=== PATIENT | female | born 1955 | race African-American/Black ===

== ENCOUNTER 2016-10-02 14:39 | Inpatient (IN) | payer SELFPAY ==
[~2016-10-02] VITALS: Ht 157.5 cm; Wt 60.6 kg
[2016-10-02] VITALS (10 sets, daily range): BP systolic 140–258; BP diastolic 84–131; PULSE 77–99; RESP 17–21; TEMP 97.8–98.4; O2SAT 98–100
[~2016-10-02 14:39] MED LIST: CLON.2 PO; PRIN5TAB PO; PROT40TA PO; TOPR100T15 PO; ZOFR4TAB3 SL
[2016-10-02] MEDS ORDERED: SODIUM CHLORIDE 0.9% FLUSH 5 ML FLUSH IVF PRN (15:00)
[2016-10-02] MEDS ORDERED: METF1000 PO (15:08)
[2016-10-02] MEDS ORDERED: LISI-519 PO (15:08)
[2016-10-02] MEDS ORDERED: CLON0.2T PO (15:08)
--- NOTE | 2016-10-02 15:20 | PD ---
HPI Chief Complaint: Hypertension Time Seen by Provider: 15:07 Travel History International Travel<30 days: No Contact w/Intl Traveler<30days: No Traveled to known affect area: No History of Present Illness HPI 61-year-old female came to the emergency room with history of blurred vision since this morning when she woke up. She says she has been experiencing dizziness for past 3-4 days. Says that her blood pressure is running high. However she checked it this morning only and at that time it was more than 200. She decided to come to the emergency room. She is complaining of some chest discomfort as well and some headache. Her blood pressure in triage was more than 220. Patient says she's been taking her blood pressure medication like she supposed to. She took it this morning as well. Chest pain she points to her entire chest and says it's a dull ache. [facility] Past Medical History Narrative Medical List of her past medical, surgical, social and family history was reviewed from the nursing note. Arthritis: Yes (LEGS) Asthma: No Autoimmune Disease: No Blood Disorders: No Anxiety: Yes Depression: Yes (DUE TO INFAMILY ) Heart Rhythm Problems: No Cancer: No Cardiovascular Problems: Yes High Cholesterol: Yes Chemotherapy: No Chest Pain: No Congestive Heart Failure: No COPD: No Cerebrovascular Accident: No Diabetes: No Diminished Hearing: No Endocrine: No GERD: Yes Glaucoma: No Genitourinary: No Headaches: Yes (TODAY DUE TO HIGH BLOOD PRESSURE ) Hepatitis: No Hiatal Hernia: No Hypertension: Yes Immune Disorder: No Kidney Stones: No Musculoskeletal: No Neurologic: No Psychiatric: Yes Reproductive: No Respiratory: No Immunizations Current: Yes Migraines: No Myocardial Infarction: No Radiation Therapy: No Renal Failure: No Seizures: No Sickle Cell Disease: No Sleep Apnea: No Thyroid Disease: No Ulcer: No Tetanus Vaccination: < 5 Years Influenza Vaccination: No Menopausal: Yes : 2 Para: 2 Past Surgical History AICD: No Appendectomy: No Arteriovenous Shunt: No Section: Yes Cholecystectomy: No Gynecologic Surgery: Yes (C SECTION) Insulin Pump: No Joint Replacement: No Pacemaker: No Other Surgery: Yes (C SECTION ) Social History Alcohol Use: No Tobacco Use: No (LIGHT SMOKER) Substance Use: No Allergies-Medications (Allergen,Severity, Reaction): Coded Allergies: Lortab (Verified Adverse Reaction, Severe, NAUSEA, 10/02/16) Comments List of her allergies reviewed from the nursing note. Reported Meds & Prescriptions Reported Meds & Active Scripts Active Reported Clonidine (Clonidine HCl) 0.2 Mg Tab 0.2 Mg PO BID Metformin (Metformin HCl) 1,000 Mg Tab 1,000 Mg PO BIDPC With meals Narrative Medication List of her home medications reviewed from the nursing note. Review of Systems Except as stated in HPI: all other systems reviewed are Neg Physical Exam Narrative GENERAL: Awake, alert, moderate distress SKIN: Warm and dry. HEAD: Atraumatic. Normocephalic. EYES: Pupils equal and round. No scleral icterus. No injection or drainage. ENT: No nasal bleeding or discharge. Mucous membranes pink and moist. NECK: Trachea midline. No JVD. CARDIOVASCULAR: Regular rate and rhythm. No murmur appreciated. RESPIRATORY: No accessory muscle use. Clear to auscultation. Breath sounds equal bilaterally. GASTROINTESTINAL: Abdomen soft, non-tender, nondistended. Hepatic and splenic margins not palpable. MUSCULOSKELETAL: No obvious deformities. No clubbing. No cyanosis. No edema. NEUROLOGICAL: Awake and alert. No obvious cranial nerve deficits. Motor grossly within normal limits. Normal speech. PSYCHIATRIC: Appropriate mood and affect; insight and judgment normal. Data Data Last Documented VS Vital Signs Date Time Temp Pulse Resp B/P Pulse Ox O2 Delivery O2 Flow Rate FiO2 10/02/16 17:12 99 17 220/100 99 Room Air 10/02/16 14:46 97.8 Orders Electrocardiogram (10/02/16 ) Ct Brain W/O Iv Contrast(Rout) (10/02/16 ) Ckmb (Isoenzyme) Profile (10/02/16 14:57) Complete Blood Count With Diff (10/02/16 14:57) Comprehensive Metabolic Panel (10/02/16 14:57) Magnesium (Mg) (10/02/16 14:57) Prothrombin Time / Inr (Pt) (10/02/16 14:57) Act Partial Throm Time (Ptt) (10/02/16 14:57) Troponin I (10/02/16 14:57) Sodium Chloride 0.9% Flush (Ns Flush) (10/02/16 15:00) Chest, Pa & Lat (10/02/16 14:57) Nicardipine Inj (Cardene Inj) (10/02/16 15:30) Admit Order (Ed Use Only) (10/02/16 17:09) Labs Laboratory Tests Test 10/02/16 15:35 White Blood Count 7.4 TH/MM3 Red Blood Count 5.20 MIL/MM3 Hemoglobin 14.0 GM/DL Hematocrit 41.5 % Mean Corpuscular Volume 79.7 FL Mean Corpuscular Hemoglobin 26.9 PG Mean Corpuscular Hemoglobin 33.8 % Concent Red Cell Distribution Width 14.1 % Platelet Count 239 TH/MM3 Mean Platelet Volume 7.5 FL Neutrophils (%) (Auto) 62.2 % Lymphocytes (%) (Auto) 26.8 % Monocytes (%) (Auto) 7.9 % Eosinophils (%) (Auto) 2.5 % Basophils (%) (Auto) 0.6 % Neutrophils # (Auto) 4.6 TH/MM3 Lymphocytes # (Auto) 2.0 TH/MM3 Monocytes # (Auto) 0.6 TH/MM3 Eosinophils # (Auto) 0.2 TH/MM3 Basophils # (Auto) 0.0 TH/MM3 CBC Comment DIFF FINAL Differential Comment Prothrombin Time 10.3 SEC Prothromb Time International 0.9 RATIO Ratio Activated Partial 23.0 SEC Thromboplast Time Sodium Level 141 MEQ/L Potassium Level 3.6 MEQ/L Chloride Level 102 MEQ/L Carbon Dioxide Level 28.5 MEQ/L Anion Gap 11 MEQ/L Blood Urea Nitrogen 15 MG/DL Creatinine 0.72 MG/DL Estimat Glomerular Filtration 100 ML/MIN Rate Random Glucose 110 MG/DL Calcium Level 9.5 MG/DL Magnesium Level 1.7 MG/DL Total Bilirubin 0.2 MG/DL Aspartate Amino Transf 12 U/L (AST/SGOT) Alanine Aminotransferase 21 U/L (ALT/SGPT) Alkaline Phosphatase 65 U/L Total Creatine Kinase 39 U/L Troponin I LESS THAN 0.02 NG/ML Total Protein 8.1 GM/DL Albumin 3.5 GM/DL [facility] Medical Decision Making Medical Screen Exam Complete: Yes Emergency Medical Condition: Yes Medical Record Reviewed: Yes Interpretation(s) Twelve-lead EKG was reviewed by me. Normal sinus rhythm, normal axis, LVH, nonspecific ST-T wave changes. Heart rate of 74 bpm. Differential Diagnosis Malignant hypertension, hypertensive encephalopathy, ACS Narrative Course 5:13 PM blood test results of back and within relatively normal limits. I looked at the head CT myself and it appears to be normal. Awaiting for the radiologist's read. Chest x-ray is within normal limits. I started the patient on Cardene drip. I spoke with the hospitalist who has admitted the patient. Patient needs to go to the ICU due to the drip. Critical Care Narrative Aggregate critical care time was 30 minutes. Time to perform other separately billable procedures was not included in the critical care time. My time did not include minutes spent treating any other patients simultaneously or on activities that did not directly contribute to the patient's treatment. The services I provided to this patient were to treat and/or prevent clinically significant deterioration that could result in: Malignant hypertension, Cardene drip I provided critical care services requiring my management, as noted below: Chart data review, documentation time, medication orders and management, vital sign assessments/reviewing monitor data, ordering and reviewing lab tests, ordering and interpreting/reviewing x-rays and diagnostic studies, care of the patient and discussion of the patient with the admitting physicians. Procedures EKG Prior to Arrival: Yes Physician Communication Physician Communication Dr. Oconnor Diagnosis Primary Impression: Malignant hypertension Additional Impressions: Dizziness Chest pain Qualified Code: R07.9 - Chest pain, unspecified type Admitting Information Admitting Physician Requests: Admit Scripts Aspirin 325 Mg [id number] Mg PO DAILY #30 TAB Ref 0 Prov:Jeferson Killian MD 10/04/16 Lisinopril 10 Mg Tab40 Mg PO DAILY #30 TAB Prov:Jeferson Killian MD 10/04/16 Amlodipine (Norvasc)10 Mg Tab10 Mg PO DAILY #30 TAB Prov:Jeferson Killian MD 10/04/16 Jc Vaz MD Oct 02, 2016 15:20
[2016-10-02] MEDS ORDERED: niCARdipine INJ 25 MG in SODIUM CHLOR 0.9% 250 ML INJ 250 ML IV SCH (15:30)
--- NOTE | 2016-10-02 15:48 | RADRPT ---
EXAM DATE/TIME: 10/02/2016 15:33 [facility] COMPARISON: No previous studies available for comparison. INDICATIONS : Chest pain MEDICAL HISTORY : Hypertension. Hypoglycemia SURGICAL HISTORY : None. ENCOUNTER: Initial ACUITY: 4 - 6 days PAIN SCORE: 0/10 LOCATION: chest FINDINGS: PA and lateral views of the chest demonstrate the lungs to be symmetrically aerated without evidence of mass, infiltrate or effusion. The cardiomediastinal contours are unremarkable. Osseous structure s are intact. CONCLUSION: No acute disease. Ike Pinto MD FACR on October 02, 2016 at 15:45 Board Certified Radiologist. This report was verified electronically.
[2016-10-02 16:10] LABS: AUTOMATED NEUTROPHIL # 4.6 TH/MM3 (1.8-7.7); BASOPHIL % 0.6 % (0.0-2.0); EOSINOPHIL # 0.2 TH/MM3 (0-0.4); EOSINOPHIL % 2.5 % (0.0-4.0); HEMATOCRIT 41.5 % (35.0-46.0); HEMO FLAGS DIFF FINAL; LYMPH % 26.8 % (9.0-44.0); MEAN CELL VOLUME 79.7 FL (80.0-100.0); MEAN CORPUSCULAR HEMOGLOBIN 26.9 PG (27.0-34.0); MEAN CORPUSCULAR HGB CONC 33.8 % (32.0-36.0); MONO % 7.9 % (0.0-8.0); NEUT % 62.2 % (16.0-70.0); PLATELET COUNT 239 TH/MM3 (150-450); RED CELL DISTRIBUTION WIDTH 14.1 % (11.6-17.2); WHITE BLOOD COUNT 7.4 TH/MM3 (4.0-11.0)
[2016-10-02 16:21] LABS: INTERNATIONAL NORMALIZED RATIO 0.9 RATIO; PROTHROMBIN TIME - PATIENT 10.3 SEC (9.8-11.6)
[2016-10-02 16:25] LABS: ALT (GPT) 21 U/L (10-53); ANION GAP 11 MEQ/L (5-15); AST (GOT) 12 U/L (15-37); BICARBONATE 28.5 MEQ/L (21.0-32.0); BLOOD UREA NITROGEN 15 MG/DL (7-18); CHLORIDE 102 MEQ/L (98-107); GLOMERULAR FILTRATION RATE 100 ML/MIN (>89); MAGNESIUM 1.7 MG/DL (1.5-2.5); POTASSIUM 3.6 MEQ/L (3.5-5.1); SODIUM (NA) 141 MEQ/L (136-145)
[2016-10-02 16:29] LABS: ALKALINE PHOSPHATASE 65 U/L (45-117); TOTAL BILIRUBIN ADULT 0.2 MG/DL (0.2-1.0)
[2016-10-02 16:45] LABS: CREATINE KINASE 39 U/L (26-192)
--- NOTE | 2016-10-02 17:15 | RADRPT ---
EXAM DATE/TIME: 10/02/2016 16:39 [facility] COMPARISON: No previous studies available for comparison. INDICATIONS : Dizziness, hypertension, headache and blurred vision. RADIATION DOSE: 42.92 CTDIvol (mGy) MEDICAL HISTORY : Hypertension. SURGICAL HISTORY : section. ENCOUNTER: Initial ACUITY: 4 - 6 days PAIN SCALE: 5/10 LOCATION: cranial TECHNIQUE: Multiple contiguous axial images were obtained of the head. Using automated exposure control and adj ustment of the mA and/or kV according to patient size, radiation dose was kept as low as reasonably a chievable to obtain optimal diagnostic quality images. FINDINGS: CEREBRUM: The ventricles are normal for age. Periventricular white matter hypodensity is identified in both fro ntal lobes. No evidence of midline shift, mass lesion, hemorrhage or acute infarction. No extra-axia l fluid collections are seen. POSTERIOR FOSSA: The cerebellum and brainstem are intact. The 4th ventricle is midline. The cerebellopontine angle i s unremarkable. EXTRACRANIAL: The visualized portion of the orbits is intact. SKULL: The calvaria is intact. No evidence of skull fracture. CONCLUSION: Periventricular white matter hypodensity in the frontal lobes characteristic of either post brain inj ury changes or chronic microvascular ischemic disease. No evidence of acute infarct, hemorrhage, mass or edema. Dimitris Schultz MD on October 02, 2016 at 17:11 Board Certified Radiologist. This report was verified electronically.
[2016-10-02] MEDS ORDERED: SODIUM CHLORIDE 0.9% FLUSH 5 ML FLUSH FLUSH PRN (17:45)
[2016-10-02] MEDS ORDERED: ENALAPRILAT 1.25 MG/ML VIAL IV PRN (17:45)
[2016-10-02] MEDS ORDERED: GLUCAGON 1 MG/ML VIAL OTHER PRN (17:45)
[2016-10-02] MEDS ORDERED: DEXTROSE 50% IN WATER 50 ML VIAL(D50) IV PUSH PRN (17:45)
[2016-10-02] MEDS: LISINOPRIL 5 MG TAB PO SCH (17:57)
[2016-10-02] MEDS: hydrALAZINE HCL 20 MG/ML VIAL IV PRN (18:38)
--- NOTE | 2016-10-02 19:08 | HHI.HP ---
HPI [facility] Primary Care Physician Deonte Grubbs M.D. Admission Diagnosis malignant hypertension, dizziness, chest pain Diagnoses: Travel History International Travel<30 Days: No Contact w/Intl Traveler <30 Da: No Traveled to Known Affected Are: No Past Family Social History Allergies: Coded Allergies: Lortab (Verified Adverse Reaction, Severe, NAUSEA, 10/02/16) Physical Exam Vital Signs Vital Signs Date Time Temp Pulse Resp B/P Pulse Ox O2 Delivery O2 Flow Rate FiO2 10/02/16 18:15 89 17 198/102 99 Nasal Cannula 10/02/16 18:00 99 21 10/02/16 17:55 98 17 196/102 100 Room Air 10/02/16 17:40 96 17 192/100 99 Room Air 10/02/16 17:25 84 17 198/100 98 Room Air 10/02/16 17:12 99 17 220/100 99 Room Air 10/02/16 15:10 68 17 99 10/02/16 14:46 97.8 82 18 258/131 98 Physical Exam GENERAL: This is a well-nourished, well-developed patient, in no apparent distress. SKIN: No rashes, ecchymoses or lesions. Cool and dry. HEAD: Atraumatic. Normocephalic. No temporal or scalp tenderness. EYES: Pupils equal round and reactive. Extraocular motions intact. No scleral icterus. No injection or drainage. ENT: Nose without bleeding, purulent drainage or septal hematoma. Throat without erythema, tonsillar hypertrophy or exudate. Uvula midline. Airway patent. NECK: Trachea midline. No JVD or lymphadenopathy. Supple, nontender, no meningeal signs. CARDIOVASCULAR: Regular rate and rhythm without murmurs, gallops, or rubs. RESPIRATORY: Clear to auscultation. Breath sounds equal bilaterally. No wheezes , rales, or rhonchi. GASTROINTESTINAL: Abdomen soft, non-tender, nondistended. No hepato-splenomegaly , or palpable masses. No guarding. MUSCULOSKELETAL: Extremities without clubbing, cyanosis, or edema. No joint tenderness, effusion, or edema noted. No calf tenderness. Negative Homans sign bilaterally. NEUROLOGICAL: Awake and alert. Cranial nerves II through XII intact. Motor and sensory grossly within normal limits. Five out of 5 muscle strength in all muscle groups. Normal speech. Laboratory Laboratory Tests Test 10/02/16 15:35 White Blood Count 7.4 Red Blood Count 5.20 Hemoglobin 14.0 Hematocrit 41.5 Mean Corpuscular Volume 79.7 Mean Corpuscular Hemoglobin 26.9 Mean Corpuscular Hemoglobin 33.8 Concent Red Cell Distribution Width 14.1 Platelet Count 239 Mean Platelet Volume 7.5 Neutrophils (%) (Auto) 62.2 Lymphocytes (%) (Auto) 26.8 Monocytes (%) (Auto) 7.9 Eosinophils (%) (Auto) 2.5 Basophils (%) (Auto) 0.6 Neutrophils # (Auto) 4.6 Lymphocytes # (Auto) 2.0 Monocytes # (Auto) 0.6 Eosinophils # (Auto) 0.2 Basophils # (Auto) 0.0 CBC Comment DIFF FINAL Differential Comment Prothrombin Time 10.3 Prothromb Time International 0.9 Ratio Activated Partial 23.0 Thromboplast Time Sodium Level 141 Potassium Level 3.6 Chloride Level 102 Carbon Dioxide Level 28.5 Anion Gap 11 Blood Urea Nitrogen 15 Creatinine 0.72 Estimat Glomerular Filtration 100 Rate Random Glucose 110 Calcium Level 9.5 Magnesium Level 1.7 Total Bilirubin 0.2 Aspartate Amino Transf 12 (AST/SGOT) Alanine Aminotransferase 21 (ALT/SGPT) Alkaline Phosphatase 65 Total Creatine Kinase 39 Troponin I LESS THAN 0.02 Total Protein 8.1 Albumin 3.5 Result Diagram: 10/02/16 1535 10/02/16 1535 Assessment and Plan Assessment and Plan [id number] Physician Certification 2 Midnight Certification Type: Admission for Inpatient Services Order for Inpatient Services The services are ordered in accordance with Medicare regulations or non- Medicare payer requirements, as applicable. In the case of services not specified as inpatient-only, they are appropriately provided as inpatient services in accordance with the 2-midnight benchmark. Estimated LOS (days): 4 days is the estimated time the patient will need to remain in the hospital, assuming treatment plan goals are met and no additional complications. Post-Hospital Plan: Gail Boyer Oct 02, 2016 19:08
[2016-10-02] MEDS ORDERED: ONDANSETRON HCL 4 MG/2 ML VIAL IV PUSH PRN (19:30)
[2016-10-02] MEDS ORDERED: CHLORHEXIDINE GLUCONATE 2 % 1 PACK (2 CLOTHS)(extra cloths) TOP PRN (19:30)
--- NOTE | 2016-10-02 19:38 | HHI.PR ---
Objective Objective Results - Vital Signs Date Time Temp Pulse Resp B/P Pulse Ox O2 Delivery O2 Flow Rate FiO2 10/02/16 19:33 98 21 10/02/16 18:15 89 17 198/102 99 Nasal Cannula 10/02/16 18:00 99 21 10/02/16 17:55 98 17 196/102 100 Room Air 10/02/16 17:40 96 17 192/100 99 Room Air 10/02/16 17:25 84 17 198/100 98 Room Air 10/02/16 17:12 99 17 220/100 99 Room Air 10/02/16 15:10 68 17 99 10/02/16 14:46 97.8 82 18 258/131 98 I/O 10/01/16 10/01/16 10/01/16 10/02/16 10/02/16 10/02/16 07:00 15:00 23:00 07:00 15:00 23:00 Intake Total 180 ml Output Total 600 ml Balance -420 ml Intake Oral 180 ml Output Urine Total 600 ml # Voids 1 # Bowel Movements 0 Result Diagram: 10/02/16 1535 10/02/16 1535 Other Results Laboratory Tests Test 10/02/16 15:35 White Blood Count 7.4 Red Blood Count 5.20 Hemoglobin 14.0 Hematocrit 41.5 Mean Corpuscular Volume 79.7 Mean Corpuscular Hemoglobin 26.9 Mean Corpuscular Hemoglobin 33.8 Concent Red Cell Distribution Width 14.1 Platelet Count 239 Mean Platelet Volume 7.5 Neutrophils (%) (Auto) 62.2 Lymphocytes (%) (Auto) 26.8 Monocytes (%) (Auto) 7.9 Eosinophils (%) (Auto) 2.5 Basophils (%) (Auto) 0.6 Neutrophils # (Auto) 4.6 Lymphocytes # (Auto) 2.0 Monocytes # (Auto) 0.6 Eosinophils # (Auto) 0.2 Basophils # (Auto) 0.0 CBC Comment DIFF FINAL Differential Comment Prothrombin Time 10.3 Prothromb Time International 0.9 Ratio Activated Partial 23.0 Thromboplast Time Sodium Level 141 Potassium Level 3.6 Chloride Level 102 Carbon Dioxide Level 28.5 Anion Gap 11 Blood Urea Nitrogen 15 Creatinine 0.72 Estimat Glomerular Filtration 100 Rate Random Glucose 110 Calcium Level 9.5 Magnesium Level 1.7 Total Bilirubin 0.2 Aspartate Amino Transf 12 (AST/SGOT) Alanine Aminotransferase 21 (ALT/SGPT) Alkaline Phosphatase 65 Total Creatine Kinase 39 Troponin I LESS THAN 0.02 Total Protein 8.1 Albumin 3.5 Physical Exam Physical Exam pt is seen & examined d/w PT d/w audrey d/w RN see H&P see Ordersw will f/u Jeferson Killian MD Oct 02, 2016 19:38
[2016-10-02] MEDS: cloNIDine HCL 0.2 MG TAB PO SCH (20:00)
[2016-10-02] MEDS: SODIUM CHLORIDE 0.9% FLUSH 5 ML FLUSH FLUSH SCH (20:01)
[2016-10-02] MEDS: INSULIN ASPART SUPPLEMENTAL SCALE SQ SCH (20:07)
[2016-10-02] MEDS: niCARdipine INJ 50 MG in SODIUM CHLORID 0.9% 500 ML INJ 480 ML IV SCH (22:25)
[2016-10-02] MEDS: CHLORHEXIDINE GLUCONATE 2 % 1 PACK (2 CLOTHS)(taper/protocol) TOP SCH (22:26)
[2016-10-03] VITALS (10 sets, daily range): BP systolic 127–178; BP diastolic 62–88; PULSE 58–75; RESP 18–21; TEMP 98.2–98.9; O2SAT 97–99
[2016-10-03] MEDS: INSULIN ASPART SUPPLEMENTAL SCALE SQ SCH ×4 (07:00→20:41)
--- NOTE | 2016-10-03 08:44 | MH ---
cc: JEFERSON KILLIAN MD DATE OF ADMISSION 10/02/2016 DATE OF 1955 CHIEF COMPLAINT Dizziness, blurred vision, high blood pressure. Travel none in the last 30 days. HISTORY OF PRESENT ILLNESS This is a pleasant 61-year-old black female who has been in her usual state of health up until the past few days. The patient also states that she has struggled with her blood pressure since the age of 16 and keeping it under control. She states she takes four medications and her last dose was this morning. She states that she has been dizzy for the past 3-4 days but when she awakened this morning she had blurred vision. She also has headache, but denies any nausea or vomiting, diarrhea or constipation. The patient also states some dull chest pain which seems to wax and wane for the past few days. The patient describes her chest pain as a dull ache, non-radiating, no numbness or tingling in her extremities. The patient has experienced some sadness in her life due to the of her son. This too is causing some of the stress in her life. The patient also states that she has some reflux with her food at times. PAST MEDICAL HISTORY Medical history: 1. Arthritis. 2. Anxiety. 3. Depression due to the of her son. 4. Vascular disease. 5. Hypertension, malignant. 6. Hyperlipidemia. 7. Gastroesophageal reflux disease. 8. Headaches. PAST SURGICAL HISTORY . ALLERGIES LORTAB. SOCIAL HISTORY She lives in her home with her two brothers. She does smoke a social amount, approximately a pack every two to three weeks. Denies any alcohol or illicit drug use. FAMILY HISTORY Hypertension. REVIEW OF SYSTEMS A 10-point review was done, positives noted in HPI which include blurred vision, dizziness, hypertension uncontrolled, chest pain, gastroesophageal reflux disease. Other systems negative or unremarkable. PHYSICAL EXAMINATION VITAL SIGNS: Temperature is 97.8, pulse labile between 84 and 99, respirations 17, blood pressure has been as high as 220/100, 198/102. O2 sat 99 on 2 liters nasal cannula p.r.n. SKIN: [place] mucous membranes warm and dry. GENERAL: Well-nourished black female looks to be her stated age resting in the bed. She is alert, oriented and cooperative. HEENT: Atraumatic, normocephalic. [place] mucous membranes. PERRLA at 3. NECK: Is supple. CARDIOVASCULAR: Heart sounds S1-S2 regular rate and rhythm with no murmurs, rubs or gallops. She has no edema. Pulses are intact. LUNGS: Essentially clear anteriorly and posteriorly with no wheezes, rales or rhonchi. ABDOMEN: Flat, soft, nontender, nondistended. Active bowel sounds in all four quads. MUSCULOSKELETAL: She moves all extremities with purpose. She has equal hand stockroom attendant and she can overcome resistance. NEUROLOGICAL: She is alert, oriented. A good historian. No neurological deficits noted. Speech is clear. PSYCHOLOGIC: Appropriate affect. Able to talk about her problems. LABORATORY DATA Diagnostic data, WBC count 7.4, RBC 5.2, hemoglobin 14, hematocrit 41.5, mean cell volume 79.7, platelet count 239. PT/INR 0.9. Chemistry, sodium 141, potassium 3.6, chloride 102, carbon dioxide 28.5, anion gap 11, BUN 15, creatinine 0.72, glucose 110. AST 12. Troponin less than 0.02. IMAGING Diagnostic data, chest x-ray no mass, infiltrates or effusions. CT of the head completed. Periventricular white matter hypodensity in the frontal lobes characteristics with either a post brain injury or chronic microvascular ischemic disease. No hemorrhage or infarct. ASSESSMENT 1. Malignant hypertension, uncontrolled. 2. Dizziness. 3. Chest pain, rule out [facility]. 4. Blurred vision. 5. Hyperlipidemia. 6. Depression and anxiety. The plan is to admit inpatient status. The patient is requiring IV Cardene as well as IV p.r.n. medicines and her p.o. medicines to get her blood pressure under control. She has still been running a diastolic greater than 100 since her admission up to the ICU area. We will need to monitor closely and monitor neuro checks if warranted. The patient will have vital signs at least every 1-4 hours depending on her course of treatment. O2 at 2 liters p.r.n. We will monitor her labs and vital signs and treat aggressively any abnormals. Once the patient is stabilized, she will need her chest pain addressed. We will monitor her troponin levels. Give her gentle hydration, 1800 calories ADA diet. Accu-Cheks a.c. and at bedtime due to her mild hyperglycemia on admission. She is full code, full aggressive care and we will follow. Dictated by: DONALD Alcazar Jeferson Killian MD MNA/KK /5:58 PM /7:43 AM pt is seen & examined d/w PT d/w audrey d/w RN see H&P see Ordersw will f/u Jeferson Killian MD Oct 02, 2016 19:38 MTDD
[2016-10-03] MEDS: SODIUM CHLORIDE 0.9% FLUSH 5 ML FLUSH FLUSH SCH ×2 (08:54→20:27)
[2016-10-03] MEDS: cloNIDine HCL 0.2 MG TAB PO SCH ×2 (08:54→20:27)
[2016-10-03] MEDS: LISINOPRIL 5 MG TAB PO SCH (08:54)
--- NOTE | 2016-10-03 15:02 | EKG ---
Date Performed: 10/02/2016 Time Performed: 14:58:40 PTAGE: 61 years EKG: Sinus rhythm VOLTAGE CRITERIA FOR LVH POSSIBLE INFERIOR MYOCARDIAL INFARCTION Compared to prior tracing no signif icant change ABNORMAL ECG PREVIOUS TRACING : 09/29/2015 03.20 DOCTOR: Pradeep Jones Interpretating Date/Time 10/03/2016 14:58:32
--- NOTE | 2016-10-03 15:05 | HHI.PR ---
Subjective History of Present Illness Complains of headache No more nausea or vomiting Chest pain is better No shortness of breath No fever or chills Blood pressure is better, still on cardene drip Offers no other complaints Granddaughter is at bedside Vitals/Results Intake & Output 10/02/16 10/02/16 10/03/16 15:00 23:00 07:00 Intake Total 1192 ml 799 ml Output Total 600 ml 400 ml Balance 592 ml 399 ml Intake Oral 480 ml 250 ml IV Total 712 ml 549 ml Output Urine Total 600 ml 400 ml # Voids 2 1 # Bowel Movements 0 Vital Signs Vital Signs Date Time Temp Pulse Resp B/P Pulse Ox O2 Delivery O2 Flow Rate FiO2 10/03/16 12:00 98.5 72 18 144/87 98 10/03/16 08:00 98.9 67 20 150/76 97 10/03/16 08:00 67 10/03/16 06:00 67 10/03/16 04:00 98.3 70 18 130/67 98 10/03/16 04:00 70 10/03/16 02:00 68 10/03/16 00:00 98.2 75 21 127/62 97 10/03/16 00:00 75 10/02/16 22:00 77 10/02/16 20:00 98.4 90 21 140/84 99 10/02/16 20:00 90 10/02/16 19:33 98 21 10/02/16 18:15 89 17 198/102 99 Nasal Cannula 10/02/16 18:00 99 21 10/02/16 17:55 98 17 196/102 100 Room Air 10/02/16 17:40 96 17 192/100 99 Room Air 10/02/16 17:25 84 17 198/100 98 Room Air 10/02/16 17:12 99 17 220/100 99 Room Air 10/02/16 15:10 68 17 99 CBC/BMP: 10/02/16 1535 10/02/16 1535 Lab Results Laboratory Tests Test 10/02/16 10/02/16 10/02/16 15:35 18:30 21:45 White Blood Count 7.4 TH/MM3 Red Blood Count 5.20 MIL/MM3 Hemoglobin 14.0 GM/DL Hematocrit 41.5 % Mean Corpuscular Volume 79.7 FL Mean Corpuscular Hemoglobin 26.9 PG Mean Corpuscular Hemoglobin 33.8 % Concent Red Cell Distribution Width 14.1 % Platelet Count 239 TH/MM3 Mean Platelet Volume 7.5 FL Neutrophils (%) (Auto) 62.2 % Lymphocytes (%) (Auto) 26.8 % Monocytes (%) (Auto) 7.9 % Eosinophils (%) (Auto) 2.5 % Basophils (%) (Auto) 0.6 % Neutrophils # (Auto) 4.6 TH/MM3 Lymphocytes # (Auto) 2.0 TH/MM3 Monocytes # (Auto) 0.6 TH/MM3 Eosinophils # (Auto) 0.2 TH/MM3 Basophils # (Auto) 0.0 TH/MM3 CBC Comment DIFF FINAL Differential Comment Prothrombin Time 10.3 SEC Prothromb Time International 0.9 RATIO Ratio Activated Partial 23.0 SEC Thromboplast Time Sodium Level 141 MEQ/L Potassium Level 3.6 MEQ/L Chloride Level 102 MEQ/L Carbon Dioxide Level 28.5 MEQ/L Anion Gap 11 MEQ/L Blood Urea Nitrogen 15 MG/DL Creatinine 0.72 MG/DL Estimat Glomerular Filtration 100 ML/MIN Rate Random Glucose 110 MG/DL Calcium Level 9.5 MG/DL Magnesium Level 1.7 MG/DL Total Bilirubin 0.2 MG/DL Aspartate Amino Transf 12 U/L (AST/SGOT) Alanine Aminotransferase 21 U/L (ALT/SGPT) Alkaline Phosphatase 65 U/L Total Creatine Kinase 39 U/L Troponin I LESS THAN 0.02 0.05 NG/ML NG/ML Total Protein 8.1 GM/DL Albumin 3.5 GM/DL Nasal Screen MRSA (PCR) NEGATIVE Physical Exam General General Appearance: No Acute Distress, Comfortable, Obese Eyes Eye Exam: Pupils Equal, Sclera White Ears & Nose Ears & Nose Exam: Nasal Mucosa [place] Throat Throat Exam: Oral Mucosa [place] & Moist Neck Neck Exam: Neck Supple, Trachea Midline Pulmonary Resp Exam: Clear Bilaterally, Breath Sounds Equal Cardiology CV Exam: Regular, Normal Sinus Rhythm Gastrointestinal/Abdomen GI Exam: Soft, Non-Tender, Bowel Sounds Present Integumentary Skin Exam: Warm, Dry Extremeties Extremities Exam: No Edema, Pedal Pulses Palpable Neurologic Neuro Exam: Alert, Awake, Oriented, Speech Clear, Moving All Extremities Psychiatric Psych Exam: Appropriate Responses Assessment/Plan Assessment/Plan ASSESSMENT 1. Malignant hypertension, uncontrolled. 2. Dizziness. 3. Chest pain, rule out [place]. 4. Blurred vision. 5. Hyperlipidemia. 6. Depression and anxiety. Plan DC Cardene drip Start beta radha Increased dose of DONALDO inhibitor continue clonidine for now Troponin negative Continue aspirin Obtain cardiac consultation Obtain 2-D echo Check lipid profile GI Protection DVT prophylaxis Transfer to telemetry Jeferson Killian MD Oct 03, 2016 15:05
[2016-10-03] MEDS ORDERED: METF500T PO ×2 (15:10)
[2016-10-03] MEDS ORDERED: ROSU20 PO (15:13)
[2016-10-03] MEDS ORDERED: CARVEDILOL 3.125 MG TAB PO ONE (15:15)
[2016-10-03] MEDS ORDERED: hydrALAZINE HCL 50 MG TAB PO PRN (16:45)
--- NOTE | 2016-10-03 17:30 | MB ---
cc: SANTOSH COOL DATE OF CONSULTATION: 10/03/2016 REASON FOR CONSULTATION: Chest pain HISTORY OF PRESENT ILLNESS This is a very nice 61-year-old female who presented to emergency department with blurry vision for 3-4 days in addition to headache. She also describes some waxing and waning chest pain over the course of the past few days. When she came into the emergency department the systolic blood pressure was severely elevated close to 100 mmHg. She was started on Cardene drip and transferred to the ICU. Blood pressure has improved. Initial troponin was negative, second troponin was intermediate. She again had another recurrence of substernal chest tightness which she describes as someone sitting on her chest. No EKG changes were noted. She is now chest pain free. PAST MEDICAL HISTORY: 1. Arthritis 2. Anxiety and depression 3. Vascular disease 4. Hypertension 5. Hyperlipidemia 6. GERD. 7. Headache ALLERGIES: LORTAB SOCIAL HISTORY: Occasional tobacco use. Denies any drug use. Denies any alcohol use. FAMILY HISTORY Family history of sudden cardiac . REVIEW OF SYSTEMS 12-point review of system was performed, negative unless otherwise noted is history of present illness. PHYSICAL EXAMINATION VITAL SIGNS: Temperature 98, heart rate 72, blood pressure 144/87 mmHg. General: Alert and oriented x3 in no acute distress. HEENT: Exam shows pupils round and reactive to light and accommodation. Extraocular movements intact. Elevation in jugular venous distention. No thyromegaly, no lymphadenopathy, no carotid bruits. Lungs: Clear to auscultation bilaterally. Cardiovascular: Regular rate and rhythm. A 2/6 systolic murmur, left sternal border. Abdomen: Non-tender, non-distended. Good bowel sounds. No hepatosplenomegaly. Extremities: No clubbing, cyanosis or edema. Good peripheral pulses. Cranial nerves intact. Motor sensory grossly intact. LABORATORY DATA WBC 7.4, hemoglobin 14, platelet count 239, sodium 141, potassium 3.6 BUN is 15, creatinine 0.72, troponins 0.05. Electrocardiogram: sinus rhythm, left ventricular hypertrophy with strained pattern. ASSESSMENT 8. Angina. 9. Hypertension 10. Diabetes. PLAN Systolic blood pressure does look better. Cardene drip is being weaned. Will change the Lisinopril to 40 milligrams a day. If continues with high blood pressure, may consider addition of Amlodipine. We will use Hydralazine p.r.n., and discontinue Cardene drip. Troponin is in the intermediate range. Symptoms are somewhat suggestive. EKG shows no significant ischemic changes. Will plan for Lexiscan tomorrow, n.p.o. after midnight. MD TERRY Minaya/FAUSTO /4:49 PM /5:13 PM
[2016-10-03] MEDS: ACETAMINOPHEN/HYDROcodone 325 MG/5 MG TAB PO PRN (17:42)
[2016-10-03] MEDS: CHLORHEXIDINE GLUCONATE 2 % 1 PACK (2 CLOTHS)(taper/protocol) TOP SCH (20:27)
[2016-10-03] MEDS ORDERED: LISINOPRIL 10 MG TAB PO SCH (21:00)
[2016-10-04] VITALS (9 sets, daily range): BP systolic 142–179; BP diastolic 79–91; PULSE 54–70; RESP 12–19; TEMP 97.9–98.6; O2SAT 96–100
[2016-10-04] MEDS: hydrALAZINE HCL 20 MG/ML VIAL IV PRN (04:34)
[2016-10-04] MEDS: INSULIN ASPART SUPPLEMENTAL SCALE SQ SCH ×3 (06:35→16:00)
--- NOTE | 2016-10-04 08:09 | PD.CARD.PN ---
Subjective Subjective Remarks continues to feel intermittent chest pain at rest overnight. Admits to headache present for the past day. Denies SOB or palpitations. Remains NPO overnight. ( Shonda Jay) Objective Medications Current Medications Medications (Trade) Dose Ordered Sig/Bennett Route Start Time Stop Time Status Last Admin (Catapres) 0.2 mg BID PO 10/02/16 21:00 10/03/16 20:27 (NS Flush) 2 ml UNSCH PRN FLUSH 10/02/16 17:45 (NS Flush) 2 ml BID FLUSH 10/02/16 21:00 10/03/16 20:27 (Vasotec Inj) 1.25 mg Q6H PRN IV 10/02/16 17:45 (Apresoline Inj) 10 mg Q6H PRN IV 10/02/16 17:45 10/04/16 04:34 (D50w (Vial) Inj) 25 ml UNSCH PRN IV PUSH 10/02/16 17:45 (Glucagon Inj) 1 mg UNSCH PRN OTHER 10/02/16 17:45 Miscellaneous Information Patient in critical care unit? Ass... Q361D XX 10/02/16 19:30 10/02/16 19:30 (Chlorhexidine 2% Cloth) 3 pack DAILY@04 TOP 10/03/16 04:00 10/07/16 04:01 10/03/16 20:27 (Chlorhexidine 2% Cloth) 3 pack UNSCH PRN TOP 10/02/16 19:30 10/07/16 19:27 (Zofran Inj) 4 mg Q8HR PRN IV PUSH 10/02/16 19:30 10/02/16 20:00 ([place] 5-325 Mg) 1 tab Q6H PRN PO 10/03/16 15:30 10/03/16 17:42 (Prinivil) 40 mg DAILY PO 10/04/16 09:00 (Apresoline) 50 mg Q8H PRN PO 10/03/16 16:45 Vital Signs / I&O Vital Signs Date Time Temp Pulse Resp B/P Pulse Ox O2 Delivery O2 Flow Rate FiO2 10/04/16 06:33 97.9 63 18 164/88 100 10/04/16 06:00 70 10/04/16 04:00 61 10/04/16 04:00 98.6 61 16 179/87 97 10/04/16 02:00 54 10/04/16 00:00 98.3 57 12 157/84 96 10/04/16 00:00 58 10/03/16 22:00 58 10/03/16 21:04 99 21 10/03/16 20:00 98.5 67 18 178/88 98 10/03/16 20:00 67 10/03/16 16:00 98.2 68 18 144/80 99 10/03/16 12:00 98.5 72 18 144/87 98 I/O 10/03/16 10/03/16 10/03/16 10/04/16 10/04/16 10/04/16 07:00 15:00 23:00 07:00 15:00 23:00 Intake Total 799 ml 927 ml 480 ml Output Total 400 ml 350 ml Balance 399 ml 927 ml 480 ml -350 ml Intake Oral 250 ml 720 ml 480 ml IV Total 549 ml 207 ml Output Urine Total 400 ml 350 ml # Voids 1 6 1 Physical Exam HEAD: Atraumatic. Normocephalic. EYES: Pupils equal and round. ENT: No nasal bleeding or discharge. NECK: Trachea midline. No JVD. CARDIOVASCULAR: Regular rate and rhythm. systolic murmur 2/6 LSB RESPIRATORY: No accessory muscle use. Clear to auscultation. Breath sounds equal bilaterally. GASTROINTESTINAL: Abdomen soft, non-tender. MUSCULOSKELETAL: Extremities without clubbing, cyanosis, or edema. No obvious deformities. NEUROLOGICAL: Awake and alert. No obvious cranial nerve deficits. Normal speech. PSYCHIATRIC: Appropriate mood and affect; insight and judgment normal. Laboratory Laboratory Tests Test 10/02/16 10/02/16 10/02/16 15:35 18:30 21:45 White Blood Count 7.4 TH/MM3 Red Blood Count 5.20 MIL/MM3 Hemoglobin 14.0 GM/DL Hematocrit 41.5 % Mean Corpuscular Volume 79.7 FL Mean Corpuscular Hemoglobin 26.9 PG Mean Corpuscular Hemoglobin 33.8 % Concent Red Cell Distribution Width 14.1 % Platelet Count 239 TH/MM3 Mean Platelet Volume 7.5 FL Neutrophils (%) (Auto) 62.2 % Lymphocytes (%) (Auto) 26.8 % Monocytes (%) (Auto) 7.9 % Eosinophils (%) (Auto) 2.5 % Basophils (%) (Auto) 0.6 % Neutrophils # (Auto) 4.6 TH/MM3 Lymphocytes # (Auto) 2.0 TH/MM3 Monocytes # (Auto) 0.6 TH/MM3 Eosinophils # (Auto) 0.2 TH/MM3 Basophils # (Auto) 0.0 TH/MM3 CBC Comment DIFF FINAL Differential Comment Prothrombin Time 10.3 SEC Prothromb Time International 0.9 RATIO Ratio Activated Partial 23.0 SEC Thromboplast Time Sodium Level 141 MEQ/L Potassium Level 3.6 MEQ/L Chloride Level 102 MEQ/L Carbon Dioxide Level 28.5 MEQ/L Anion Gap 11 MEQ/L Blood Urea Nitrogen 15 MG/DL Creatinine 0.72 MG/DL Estimat Glomerular Filtration 100 ML/MIN Rate Random Glucose 110 MG/DL Calcium Level 9.5 MG/DL Magnesium Level 1.7 MG/DL Total Bilirubin 0.2 MG/DL Aspartate Amino Transf 12 U/L (AST/SGOT) Alanine Aminotransferase 21 U/L (ALT/SGPT) Alkaline Phosphatase 65 U/L Total Creatine Kinase 39 U/L Total Protein 8.1 GM/DL Albumin 3.5 GM/DL Nasal Screen MRSA (PCR) NEGATIVE Troponin I 0.05 NG/ML Imaging Last Impressions Chest X-Ray 10/02/16 1457 Signed Impressions: Service Date/Time: Sunday, October 02, 2016 15:33 - CONCLUSION: No acute disease. Ike Pinto MD FACR Head CT 10/02/16 0000 Signed Impressions: Service Date/Time: Sunday, October 02, 2016 16:39 - CONCLUSION: Periventricular white matter hypodensity in the frontal lobes characteristic of either post brain injury changes or chronic microvascular ischemic disease. No evidence of acute infarct, hemorrhage, mass or edema. Dimitris Schultz MD (Shonda Jay) Assessment and Plan Problem List: (1) Chest pain (2) Malignant hypertension Assessment and Plan chest pain - continues to be symptomatic at rest. Nuclear stress testing planned for this morning to rule out ischemia. Echo pending. SBP remains elevated, +headache - Cardene gtt stopped. She is maintained on lisinopril 40mg, clonidine 0.2mg BID and hydralazine PRN. Consider addition of amlodipine. (Shonda Jay) Assessment and Plan start amlodipine. cont clonidine and DONALDO hydralazine PRN lexiscan today echo pending (Benito Clarke MD) Problem Qualifiers (1) Chest pain: Qualified Code: R07.9 - Chest pain, unspecified type Shonda Jay Oct 04, 2016 08:09 Benito Clarke MD Oct 04, 2016 08:15
[2016-10-04] MEDS: cloNIDine HCL 0.2 MG TAB PO SCH (08:53)
[2016-10-04] MEDS: SODIUM CHLORIDE 0.9% FLUSH 5 ML FLUSH FLUSH SCH (08:54)
[2016-10-04] MEDS: ACETAMINOPHEN/HYDROcodone 325 MG/5 MG TAB PO PRN ×2 (08:54→17:41)
[2016-10-04] MEDS ORDERED: LISINOPRIL 10 MG TAB PO SCH (09:00)
--- NOTE | 2016-10-04 12:37 | HHI.PR ---
Subjective Subjective Remarks drowsy, responds readily NPO for heart scan no chest pain No SOB (Gail Kim) Review of Systems Constitutional Constitutional: Weakness Constitutional Remarks 10 point ROS done. Positives noted, headache, chest pain, constipation, otherwise negative system. (Gail Kim) Cardiology CV: Chest Pain (controlled) (Gail Kim) Neurologic Neurologic: Headache (none now) (Gail Kim) Psychiatric Psychiatric: Normal Mood, Anxiety, Depression (hx) (Gail Kim) Vitals/Results Intake & Output 10/03/16 10/03/16 10/04/16 15:00 23:00 07:00 Intake Total 927 ml 480 ml Output Total 350 ml Balance 927 ml 480 ml -350 ml Intake Oral 720 ml 480 ml IV Total 207 ml Output Urine Total 350 ml # Voids 6 1 Vital Signs Vital Signs Date Time Temp Pulse Resp B/P Pulse Ox O2 Delivery O2 Flow Rate FiO2 10/04/16 12:06 98.5 55 18 143/79 100 10/04/16 08:54 67 10/04/16 08:05 98.1 62 18 172/91 96 10/04/16 06:33 97.9 63 18 164/88 100 10/04/16 06:00 70 10/04/16 04:00 61 10/04/16 04:00 98.6 61 16 179/87 97 10/04/16 02:00 54 10/04/16 00:00 98.3 57 12 157/84 96 10/04/16 00:00 58 10/03/16 22:00 58 10/03/16 21:04 99 21 10/03/16 20:00 98.5 67 18 178/88 98 10/03/16 20:00 67 10/03/16 16:00 98.2 68 18 144/80 99 (Gail Kim) CBC/BMP: 10/02/16 1535 10/02/16 1535 Imaging Remarks Last Impressions Chest X-Ray 10/02/16 1457 Signed Impressions: Service Date/Time: Sunday, October 02, 2016 15:33 - CONCLUSION: No acute disease. Ike Pinto MD FACR Head CT 10/02/16 0000 Signed Impressions: Service Date/Time: Sunday, October 02, 2016 16:39 - CONCLUSION: Periventricular white matter hypodensity in the frontal lobes characteristic of either post brain injury changes or chronic microvascular ischemic disease. No evidence of acute infarct, hemorrhage, mass or edema. Dimitris Schultz MD Current Medications Active Medications Acetaminophen/ Hydrocodone Bitart ([place] 5-325 Mg) 1 tab Q6H PRN PO Last administered on 10/04/16 08:54; Admin Dose 1 TAB; Start 10/03/16 at 15:30 Amlodipine Besylate (Norvasc) 10 mg DAILY PO Last administered on 10/04/16 08: 53; Admin Dose 10 MG; Start 10/04/16 at 09:00 Carvedilol (Coreg) 3.125 mg ONCE ONCE PO Last administered on 10/03/16 17:33; Admin Dose 3.125 MG; Start 10/03/16 at 15:15; Stop 10/03/16 at 15:20; Status DC Hydralazine HCl (Apresoline) 50 mg Q8H PRN PO; Start 10/03/16 at 16:45 Lisinopril (Prinivil) 10 mg BID PO; Start 10/03/16 at 21:00; Stop 10/03/16 at 21 :00; Status DC Lisinopril (Prinivil) 40 mg DAILY PO Last administered on 10/04/16 08:53; Admin Dose 40 MG; Start 10/04/16 at 09:00 (Gail Kim) Physical Exam General General Appearance: No Acute Distress, Comfortable, Obese (Gail Kim [employer]) Eyes Eye Exam: Pupils Equal, Sclera White (Gail Kim [employer]) Ears & Nose Ears & Nose Exam: Nasal Mucosa [place] (Gail Kim [employer]) Throat Throat Exam: Oral Mucosa [place] & Moist (Gail Kim [employer]) Neck Neck Exam: Neck Supple, Trachea Midline (Gail KimP) Pulmonary Resp Exam: Clear Bilaterally, Breath Sounds Equal (Gail Kim [employer]) Cardiology CV Exam: Regular, Normal Sinus Rhythm (Gail KimP) Gastrointestinal/Abdomen GI Exam: Soft, Non-Tender, Bowel Sounds Present (Gail Kim) Musculoskeletal MS Exam: Joints Intact (Gail Kim) Integumentary Skin Exam: Warm, Dry (Gail Kim) Extremeties Extremities Exam: No Edema, Pedal Pulses Palpable (Gail Kim) Neurologic Neuro Exam: Alert, Awake, Oriented, Speech Clear, Moving All Extremities Neuro Remarks headache prn (Gail Kim) Psychiatric Psych Exam: Appropriate Responses (Gail Kim) Assessment/Plan Assessment/Plan ASSESSMENT 1. Malignant hypertension, uncontrolled. 2. Dizziness. 3. Chest pain, rule out [place]. 4. Blurred vision. 5. Hyperlipidemia. 6. Depression and anxiety. Plan Cardene drip off Patient managed on Norvasc, Lisinopril, Clonidine. BP 140s-160s systolic , Troponin negative, PA R/O, appreciate cardiac input. Continue aspirin cardiac consultation done, plan Lexiscan today. 2-D echo, telemetry, no acute issues. lipid profile GI Protection DVT prophylaxis Discharge planning when cardiac w/u complete. On PO meds for HTN d/w patient d/w RN d/w Dr. Killian, patient seen on his behalf (Gail Kim) Assessment/Plan pt is resting comfortably in bed Headache is little better / havnt taken pain meds BP is better no more CP s/p stress test await results , if neg , will d/c home If +ve than will need cardiac cath (Jeferson Killian MD) Gail Kim Oct 04, 2016 12:36 Jeferson Killian MD Oct 04, 2016 17:51
[2016-10-04] MEDS ORDERED: REGADENOSON INJ 0.4 MG/5 ML SYR ONE (13:08)
--- NOTE | 2016-10-04 15:43 | RADRPT ---
EXAM DATE/TIME: 10/04/2016 12:39 [facility] COMPARISON: No previous studies available for comparison. INDICATIONS : Substenal chest pain for 2 days. Angina. DOSE: 25.4 mCi Tc99m Myoview at stress. 8.7 mCi Tc99m Myoview at rest. 0.4 mg Lexiscan STRESS SYMPTOMS: Dyspnea. EJECTION FRACTION: 58% MEDICAL HISTORY : Hypertension. Hypercholesterolemia. Current smoker. SURGICAL HISTORY : section. ENCOUNTER: Initial ACUITY: 2 days PAIN SCALE: 3/10 LOCATION: Substernal chest TECHNIQUE: The patient underwent pharmacologic stress with infusion of prescribed dose. Continuous ECG tracing was monitored during stress. Gated SPECT imaging was performed after stress and conventional SPECT i maging was performed at rest. The examination was performed on a SPECT/CT scanner, both attenuation and non-corrected datasets were reviewed. FINDINGS: DISTRIBUTION: The maximum perfused segment at stress is in the septal wall. PERFUSION STUDY: The pattern of perfusion at stress is within normal limits. GATED STUDY: There is intact wall motion and thickening without hypokinetic or dyskinetic segments. CONCLUSION: No areas of ischemia are seen. RISK CATEGORY: Low (<1% Annual Mortality Rate) Tutu Shea MD on October 04, 2016 at 15:40 Board Certified Radiologist. This report was verified electronically.
[2016-10-04] MEDS ORDERED: AMLO10 PO (17:54)
[2016-10-04] MEDS ORDERED: LISI10TA3 PO (17:54)
[2016-10-04] MEDS ORDERED: ASPI325T PO (17:54)
--- NOTE | 2016-10-04 20:00 | EC ---
Study Study Date:10/04/2016 STUDY CONCLUSIONS SUMMARY - Left ventricle: The cavity size was normal. Wall thickness was increased in a pattern of moderate LVH. Systolic function was normal. The estimated ejection fraction was in the range of 60% to 65%. Wall motion was normal; there were no regional wall motion abnormalities. Doppler parameters are consistent with abnormal left ventricular relaxation (grade 1 diastolic dysfunction). - Aortic valve: Trace regurgitation. Valve area: 1.98cm^2(VTI). Valve area: 1.91cm^2 (Vmax). - Mitral valve: Calcified annulus. Mildly calcified leaflets, . - Left atrium: The atrium was mildly dilated. - Pulmonary arteries: PA peak pressure: 32mm Hg (S). If LV function is below 40, please consider prescribing an ACEI or ARB or document rationale for non-use. PROCEDURE DATA STUDY STATUS: Elective. Procedure: Transthoracic echocardiography. Image quality was good. Scanning was performed from the parasternal, apical, and subcostal acoustic windows. Study completion: The patient tolerated the procedure well. Transthoracic echocardiography. M-mode, complete 2D, complete spectral Doppler, and color Doppler. Height: Height: 62in. Weight: Weight: 134.7lb. Body mass index: BMI: 24.7kg/m^2. Body surface area: BSA: 1.62m^2. Patient status: Inpatient. CARDIAC ANATOMY LEFT VENTRICLE: The cavity size was normal. Wall thickness was increased in a pattern of moderate LVH. Systolic function was normal. The estimated ejection fraction was in the range of 60% to 65%. Wall motion was normal; there were no regional wall motion abnormalities. Doppler parameters are consistent with abnormal left ventricular relaxation (grade 1 diastolic dysfunction). AORTIC VALVE: Trileaflet; mildly thickened, mildly calcified leaflets. Doppler: Transvalvular velocity was within the normal range. There was no stenosis. Trace regurgitation. Valve area: 1.98cm^2(VTI). Indexed valve area: 1.22cm^2/m^2 (VTI). Valve area: 1.91cm^2 (Vmax). Indexed valve area: 1.18cm^2/m^2 (Vmax). Mean gradient: 4mm Hg (S). AORTA: Aortic root: The aortic root was normal in size. MITRAL VALVE: Calcified annulus. Mildly calcified leaflets, . Doppler: Transvalvular velocity was within the normal range. There was no evidence for stenosis. Trace to mild regurgitation. Peak gradient: 2mm Hg (D). LEFT ATRIUM: The atrium was mildly dilated. RIGHT VENTRICLE: The cavity size was normal. Wall thickness was normal. PULMONIC VALVE: Doppler: Transvalvular velocity was within the normal range. There was no evidence for stenosis. No regurgitation. TRICUSPID VALVE: Structurally normal valve. Doppler: Transvalvular velocity was within the normal range. Trace regurgitation. PULMONARY ARTERY: The main pulmonary artery was normal-sized. Systolic pressure was within the normal range. RIGHT ATRIUM: The atrium was normal in size. PERICARDIUM: There was no pericardial effusion. SYSTEMIC VEINS: Inferior vena cava: The vessel was normal in size. Patient weight: 134.7lb _Ejection fraction:_ 65-75% _Fractional shortening:_ 32% up to 5Kg 5-11.5Kg 11.6-22.9Kg 23-45Kg 45-57Kg Aortic Root 7-13 <17 13-22 17-27 17-27 LA diam 6-13 <23 24-38 33-47 37-40 RVID 10-17 7-15 7-15 7-18 8-17 LVIDd 12-22 <32 24-38 33-47 37-40 LVPW 2-4 3-6 5-7 6-8 7-8 IVS 2-4 3-6 5-7 6-8 7-8 BASIC MEASUREMENTS ADULT NORMAL Left ventricle LV internal dimension, ED, chordal *42.7 mm 43-52 level, PLAX LV internal dimension, ES, chordal 29.5 mm 23-38 level, PLAX Fractional shortening, chordal level, 31 % >29 PLAX LV posterior wall thickness, ED 13.4 mm IVS/LVPW ratio, ED 1 <1.3 Ventricular septum Septal thickness, ED 13.4 mm Aortic valve Leaflet separation 20 mm 15-26 Aorta Root diameter, ED 33 mm Left atrium Anterior-posterior dimension 24 mm Anterior-posterior dimension index 1.48 cm/m^2 <2.2 BASIC MEASUREMENTS ADULT NORMAL Aortic valve Leaflet separation 20 mm 15-26 DOPPLER MEASUREMENTS ADULT NORMAL Main pulmonary artery Pressure, S *32 mm Hg =30 Aortic valve Peak velocity, S 136 cm/s Mean velocity, S 91.2 cm/s VTI, S 24.8 cm Mean gradient, S 4 mm Hg Valve area, VTI 1.98 cm^2 Valve area index, VTI 1.22 cm^2/m^2 Valve area, Vmax 1.91 cm^2 Valve area index, Vmax 1.18 cm^2/m^2 Mitral valve Peak E-wave velocity 73.5 cm/s Peak A-wave velocity 118 cm/s Deceleration time *278 ms 150-230 Peak gradient, D 2 mm Hg Peak E/A ratio 0.6 Tricuspid valve Regurgitant peak velocity 238 cm/s Peak RV-RA gradient, S 23 mm Hg Maximal regurgitant velocity 238 cm/s Systemic veins Estimated CVP 10 mm Hg Right ventricle RV pressure, S *33 mm Hg <30 Pulmonic valve Peak velocity, S 57.9 cm/s LEGEND: Mean values are shown as u=mean value. Asterisk (*) melendrez values outside specified normal range. Prepared and signed by Benito Clarke [id number]
== END 2016-10-04 18:50 | disposition home or self-care (01) | DRG 305 ==
LOC: NEPA 14:39 → NEDA 17:12 → HIMW 18:20 → N04A 10-04 06:16
PROVIDERS: ADMIT Specialist; ATTEND Specialist
DX: I10 Essential (primary) hypertension (principal); R07.9 Chest pain, unspecified; F32.9 Major depressive disorder, single episode, unspecified; E78.5 Hyperlipidemia, unspecified; R42 Dizziness and giddiness; H53.8 Other visual disturbances; R51 Headache; F41.9 Anxiety disorder, unspecified; Z72.0 Tobacco use; Z88.5 Allergy status to narcotic agent
CPT/HCPCS: 70450; 71020; 78452; 80053; 82550; 82948; 83735; 84484; 85025; 85610; 85730; 87641; 93005; 93017; 93306; 96365; A9502; J0360; J1815; J2405; J2785; J7040; J7050

== ENCOUNTER 2016-11-20 16:26 | Emergency (ER) | payer SELFPAY ==
[~2016-11-20] VITALS: Ht 157.5 cm; Wt 60.0 kg
[~2016-11-20 16:26] MED LIST changes: +AMLO10 PO; +ASPI325T PO; -CLON.2 PO; +CLON0.2T PO; +LISI10TA3 PO; +METF1000 PO; -PRIN5TAB PO; -PROT40TA PO; +ROSU20 PO; -TOPR100T15 PO; -ZOFR4TAB3 SL
[2016-11-20 16:28] VITALS: BP 220/115; PULSE 72; RESP 20; TEMP 99.2; O2SAT 98
--- NOTE | 2016-11-20 17:06 | PD ---
Physical Exam Time Seen by Provider: 17:02 Narrative 61 y/o female presents for evaluation of generalized fatigue for the past week as well as hypertension as well as pain in the left arm and leg. also wants her blood sugar checked. Hx of diabetes. Vital signs reviewed. Seen at triage desk. Awaiting bed placement. Data Data Last Documented VS Vital Signs Date Time Temp Pulse Resp B/P Pulse Ox O2 Delivery O2 Flow Rate FiO2 11/20/16 16:28 99.2 72 20 220/115 98 Room Air [facility] Medical Record Reviewed: Yes Supervised Visit with KIM: Marcio Burkett November 20, 2016 17:06
== END 2016-11-20 20:44 | disposition left against medical advice (07) ==
LOC: NED 16:26
DX: R53.83 Other fatigue (principal); I10 Essential (primary) hypertension
CPT/HCPCS: 99282

== ENCOUNTER 2016-11-22 09:27 | Emergency (ER) | payer SELFPAY ==
[2016-11-22] VITALS (8 sets, daily range): BP systolic 175–273; BP diastolic 73–153; PULSE 56–85; RESP 15–17; TEMP 97.9; O2SAT 97–98
[2016-11-22] MEDS ORDERED: cloNIDine HCL 0.2 MG TAB PO ONE (09:45)
[2016-11-22] MEDS ORDERED: SODIUM CHLORIDE 0.9% FLUSH 10 ML FLUSH IVF PRN (09:45)
[2016-11-22] MEDS ORDERED: LABETALOL HCL 100 MG/20 ML VIAL IV PUSH ONE (09:45)
[2016-11-22] MEDS ORDERED: ONDANSETRON HCL 4 MG/2 ML VIAL IVP ONE (09:45)
[2016-11-22] MEDS ORDERED: MORPHINE SULFATE 4 MG/ML INJ IV PUSH ONE (09:45)
[2016-11-22] MEDS ORDERED: LISINOPRIL 20 MG TAB PO ONE (09:45)
--- NOTE | 2016-11-22 09:56 | PD ---
HPI Chief Complaint: Hypertension Time Seen by Provider: 09:35 Travel History International Travel<30 days: No Contact w/Intl Traveler<30days: No Traveled to known affect area: No History of Present Illness HPI The patient is a 61-year-old [place] female who presents emergency department for hypertension, headache, and chest pain. The patient has a history of significant hypertension, is had multiple admissions in the past for malignant hypertension. The patient states she took her clonidine 0.2 mg last night, however, did not take her Norvasc, Cipro, or clonidine this morning. The patient states she has a mild headache, some dizziness, intermittent chest pain, and mild nausea. The patient is had similar symptoms in the past secondary to her elevated blood pressure. She does have a history of left upper extremity weakness and left arm weakness from possible CVA in the past. The patient states she did not take her blood pressure medicines this morning. Her primary physician is Dr. Sesar Grubbs. Symptoms are moderate, exacerbated by elevated blood pressure, and alleviated in the past for blood pressure medications. PFSH Past Medical History Arthritis: Yes (LEGS) Asthma: No Autoimmune Disease: No Blood Disorders: No Anxiety: Yes Depression: Yes (DUE TO INFAMILY ) Heart Rhythm Problems: No Cancer: No Cardiovascular Problems: Yes (htn) High Cholesterol: Yes Chemotherapy: No Chest Pain: No Congestive Heart Failure: No COPD: No Cerebrovascular Accident: Yes Diabetes: Yes Patient Takes Glucophage: Yes Diminished Hearing: No Endocrine: No GERD: Yes Glaucoma: No Genitourinary: No Headaches: Yes (TODAY DUE TO HIGH BLOOD PRESSURE ) Hepatitis: No Hiatal Hernia: No Hypertension: Yes Immune Disorder: No Kidney Stones: No Musculoskeletal: No Neurologic: No Psychiatric: Yes Reproductive: No Respiratory: No Immunizations Current: Yes Migraines: No Myocardial Infarction: No Radiation Therapy: No Renal Failure: No Seizures: No Sickle Cell Disease: No Sleep Apnea: No Thyroid Disease: No Ulcer: No Influenza Vaccination: No Menopausal: Yes : 2 Para: 2 Past Surgical History AICD: No Appendectomy: No Arteriovenous Shunt: No Section: Yes Cholecystectomy: No Gynecologic Surgery: Yes (C SECTION) Insulin Pump: No Joint Replacement: No Pacemaker: No Other Surgery: Yes (C SECTION ) Social History Alcohol Use: No Tobacco Use: No Substance Use: No Allergies-Medications (Allergen,Severity, Reaction): Coded Allergies: Lortab (Verified Adverse Reaction, Severe, NAUSEA, 11/22/16) Reported Meds & Prescriptions Reported Meds & Active Scripts Active Aspirin 325 Mg Tab 325 Mg PO DAILY Lisinopril 10 Mg Tab 40 Mg PO DAILY Norvasc (Amlodipine Besylate) 10 Mg Tab 10 Mg PO DAILY Reported Crestor (Rosuvastatin Calcium) 20 Mg Tab 20 Mg PO HS Clonidine (Clonidine HCl) 0.2 Mg Tab 0.2 Mg PO BID Metformin (Metformin HCl) 1,000 Mg Tab 1,000 Mg PO BIDPC With meals Review of Systems Except as stated in HPI: all other systems reviewed are Neg Eyes: Positive: Other (history of blindness in the left eye which resolved), No: Blurred Vision HENT: Positive: Headaches, Lightheadedness Cardiovascular: Positive: Chest Pain or Discomfort Respiratory: No: Shortness of Breath Gastrointestinal: Positive: Nausea, No: Vomiting Musculoskeletal: Positive: Weakness (weakness of the left upper extremity and left lower extremity of one month's duration) Neurologic: Positive: Dizziness, Headache, No: Focal Abnormalities Physical Exam Narrative GENERAL: Awake, alert, pleasant [id number] female who appears her stated age and is in no acute respiratory distress. SKIN: Focused skin assessment warm/dry. HEAD: Atraumatic. Normocephalic. EYES: Pupils equal and round. Pupils are 3 mm bilateral and reactive. ENT: No nasal bleeding or discharge. Mucous membranes pink and moist. NECK: Trachea midline. No JVD. CARDIOVASCULAR: Regular rate and rhythm. No murmur appreciated. RESPIRATORY: No accessory muscle use. Clear to auscultation. Breath sounds equal bilaterally. GASTROINTESTINAL: Abdomen soft, non-tender, nondistended. No rebound tenderness. MUSCULOSKELETAL: No obvious deformities. No clubbing. No cyanosis. No edema. NEUROLOGICAL: Awake and alert. No obvious cranial nerve deficits. Motor grossly within normal limits. Normal speech. No drift of the upper or lower extremities. Sensation is symmetric on the arms and legs bilaterally. Patient is alert and oriented 4. PSYCHIATRIC: Appropriate mood and affect; insight and judgment normal. Data Data Last Documented VS Vital Signs Date Time Temp Pulse Resp B/P Pulse Ox O2 Delivery O2 Flow Rate FiO2 11/22/16 10:55 62 17 182/98 97 Room Air 11/22/16 09:31 97.9 Orders Electrocardiogram (11/22/16 09:42) Prothrombin Time / Inr (Pt) (11/22/16 09:42) Act Partial Throm Time (Ptt) (11/22/16 09:42) Complete Blood Count With Diff (11/22/16 09:42) Comprehensive Metabolic Panel (11/22/16 09:42) Creatine Kinase (Cpk) (11/22/16 09:42) Troponin I (11/22/16 09:42) Ct Brain W/O Iv Contrast(Rout) (11/22/16 09:42) Chest, Single Ap (11/22/16 09:42) Ecg Monitoring (11/22/16 09:42) Iv Access Insert/Monitor (11/22/16 09:42) Oximetry (11/22/16 09:42) Morphine Inj (Morphine Inj) (11/22/16 09:45) Ondansetron Inj (Zofran Inj) (11/22/16 09:45) Sodium Chloride 0.9% Flush (Ns Flush) (11/22/16 09:45) Clonidine (Catapres) (11/22/16 09:45) Lisinopril (Prinivil) (11/22/16 09:45) Amlodipine (Norvasc) (11/22/16 09:45) Labetalol Inj (Trandate Inj) (11/22/16 09:45) Labs Laboratory Tests Test 11/22/16 09:55 White Blood Count 6.6 TH/MM3 Red Blood Count 4.85 MIL/MM3 Hemoglobin 12.9 GM/DL Hematocrit 38.9 % Mean Corpuscular Volume 80.2 FL Mean Corpuscular Hemoglobin 26.6 PG Mean Corpuscular Hemoglobin 33.2 % Concent Red Cell Distribution Width 14.4 % Platelet Count 278 TH/MM3 Mean Platelet Volume 7.3 FL Neutrophils (%) (Auto) 49.7 % Lymphocytes (%) (Auto) 35.6 % Monocytes (%) (Auto) 11.9 % Eosinophils (%) (Auto) 2.3 % Basophils (%) (Auto) 0.5 % Neutrophils # (Auto) 3.3 TH/MM3 Lymphocytes # (Auto) 2.4 TH/MM3 Monocytes # (Auto) 0.8 TH/MM3 Eosinophils # (Auto) 0.2 TH/MM3 Basophils # (Auto) 0.0 TH/MM3 CBC Comment DIFF FINAL Differential Comment Prothrombin Time 10.3 SEC Prothromb Time International 0.9 RATIO Ratio Activated Partial 26.1 SEC Thromboplast Time Sodium Level 140 MEQ/L Potassium Level 3.6 MEQ/L Chloride Level 105 MEQ/L Carbon Dioxide Level 27.1 MEQ/L Anion Gap 8 MEQ/L Blood Urea Nitrogen 19 MG/DL Creatinine 0.75 MG/DL Estimat Glomerular Filtration 95 ML/MIN Rate Random Glucose 135 MG/DL Calcium Level 9.5 MG/DL Total Bilirubin 0.3 MG/DL Aspartate Amino Transf 12 U/L (AST/SGOT) Alanine Aminotransferase 19 U/L (ALT/SGPT) Alkaline Phosphatase 82 U/L Total Creatine Kinase 37 U/L Troponin I LESS THAN 0.02 NG/ML Total Protein 8.5 GM/DL Albumin 3.5 GM/DL [facility] Medical Decision Making Medical Screen Exam Complete: Yes Emergency Medical Condition: Yes Medical Record Reviewed: Yes Interpretation(s) EKG reveals normal sinus rhythm with a rate of 75. Left ventricular hypertrophy. Nonspecific ST changes. Laboratory Tests Test 11/22/16 09:55 White Blood Count 6.6 TH/MM3 Red Blood Count 4.85 MIL/MM3 Hemoglobin 12.9 GM/DL Hematocrit 38.9 % Mean Corpuscular Volume 80.2 FL Mean Corpuscular Hemoglobin 26.6 PG Mean Corpuscular Hemoglobin 33.2 % Concent Red Cell Distribution Width 14.4 % Platelet Count 278 TH/MM3 Mean Platelet Volume 7.3 FL Neutrophils (%) (Auto) 49.7 % Lymphocytes (%) (Auto) 35.6 % Monocytes (%) (Auto) 11.9 % Eosinophils (%) (Auto) 2.3 % Basophils (%) (Auto) 0.5 % Neutrophils # (Auto) 3.3 TH/MM3 Lymphocytes # (Auto) 2.4 TH/MM3 Monocytes # (Auto) 0.8 TH/MM3 Eosinophils # (Auto) 0.2 TH/MM3 Basophils # (Auto) 0.0 TH/MM3 CBC Comment DIFF FINAL Differential Comment Prothrombin Time 10.3 SEC Prothromb Time International 0.9 RATIO Ratio Activated Partial 26.1 SEC Thromboplast Time Sodium Level 140 MEQ/L Potassium Level 3.6 MEQ/L Chloride Level 105 MEQ/L Carbon Dioxide Level 27.1 MEQ/L Anion Gap 8 MEQ/L Blood Urea Nitrogen 19 MG/DL Creatinine 0.75 MG/DL Estimat Glomerular Filtration 95 ML/MIN Rate Random Glucose 135 MG/DL Calcium Level 9.5 MG/DL Total Bilirubin 0.3 MG/DL Aspartate Amino Transf 12 U/L (AST/SGOT) Alanine Aminotransferase 19 U/L (ALT/SGPT) Alkaline Phosphatase 82 U/L Total Creatine Kinase 37 U/L Troponin I LESS THAN 0.02 NG/ML Total Protein 8.5 GM/DL Albumin 3.5 GM/DL Last Impressions Chest X-Ray 11/22/16 0942 Signed Impressions: Service Date/Time: Tuesday, November 22, 2016 09:53 - CONCLUSION: 1. Mild cardiomegaly. 2. No acute focal pulmonary infiltrate or pulmonary vascular congestion. Ger Patel MD CT of the head reveals no acute infarct, acute hemorrhage, mass effect, or extra -axial fluid collections. Moderate periventricular white matter small vessel ischemic changes bilaterally. Old lacunar infarcts within the bilateral basal ganglia. Mild mucosal thickening within the left sphenoid sinus. Differential Diagnosis Differential diagnosis includes malignant hypertension, accelerated hypertension , hypertensive emergency, hypertensive emergency, noncompliance, CVA, aortic dissection, intracerebral hemorrhage, renal failure. Narrative Course IV was established, labs are drawn and sent, and the patient was placed on cardiac telemetry monitoring and continuous pulse oximetry monitoring. EKG was ordered and interpreted. CT of the brain was obtained. The patient was administered labetalol 20 mg intravenously and then provided her normal medications including Norvasc 10 mg, clonidine 0.2 mg, and lisinopril 40 mg orally. The patient was consult on the need to be compliant with her antihypertensive medications. CT the brain reveals old lacunar infarcts, no acute infarct, acute hemorrhage, or mass effect. The patient's blood pressure came down with a systolic in the 180s and a diastolic in the 90s, significantly improved from previous blood pressure. We'll not attempt to get the patient's blood pressure 120/80, to void hypoxic changes and possible ischemic results. The patient is advised to monitor blood pressure closely and a follow-up with her primary physician. The patient's headache did improve from a 05/01-5/, she requests more pain medications. CT the brain was negative, patient was administered Toradol 50 mg intravenously. Patient is stable for discharge. Diagnosis Primary Impression: Hypertensive urgency, malignant Additional Instructions: Monitor blood pressure. Follow-up with your primary physician. Take your medications as directed. Please provide the patient a copy of her CT results and lab results at discharge. Follow-up with your primary physician as soon as possible. Condition: Stable Dion Workman MD November 22, 2016 09:56
[2016-11-22 10:12] LABS: AUTOMATED NEUTROPHIL # 3.3 TH/MM3 (1.8-7.7); BASOPHIL % 0.5 % (0.0-2.0); EOSINOPHIL # 0.2 TH/MM3 (0-0.4); EOSINOPHIL % 2.3 % (0.0-4.0); HEMATOCRIT 38.9 % (35.0-46.0); HEMO FLAGS DIFF FINAL; LYMPH % 35.6 % (9.0-44.0); LYMPHOCYTE # 2.4 TH/MM3 (1.0-4.8); MEAN CELL VOLUME 80.2 FL (80.0-100.0); MEAN CORPUSCULAR HEMOGLOBIN 26.6 PG (27.0-34.0); MEAN CORPUSCULAR HGB CONC 33.2 % (32.0-36.0); MONO % 11.9 % (0.0-8.0); NEUT % 49.7 % (16.0-70.0); PLATELET COUNT 278 TH/MM3 (150-450); RED BLOOD COUNT 4.85 MIL/MM3 (4.00-5.30); RED CELL DISTRIBUTION WIDTH 14.4 % (11.6-17.2); WHITE BLOOD COUNT 6.6 TH/MM3 (4.0-11.0)
[2016-11-22 10:20] LABS: APTT (PATIENT) 26.1 SEC (24.3-30.1); INTERNATIONAL NORMALIZED RATIO 0.9 RATIO; PROTHROMBIN TIME - PATIENT 10.3 SEC (9.8-11.6)
[2016-11-22 10:26] LABS: ALT (GPT) 19 U/L (10-53); ANION GAP 8 MEQ/L (5-15); AST (GOT) 12 U/L (15-37); BICARBONATE 27.1 MEQ/L (21.0-32.0); BLOOD UREA NITROGEN 19 MG/DL (7-18); CHLORIDE 105 MEQ/L (98-107); GLOMERULAR FILTRATION RATE 95 ML/MIN (>89); POTASSIUM 3.6 MEQ/L (3.5-5.1); SODIUM (NA) 140 MEQ/L (136-145)
[2016-11-22 10:30] LABS: ALKALINE PHOSPHATASE 82 U/L (45-117); CREATINE KINASE 37 U/L (26-192); TOTAL BILIRUBIN ADULT 0.3 MG/DL (0.2-1.0)
--- NOTE | 2016-11-22 10:44 | RADRPT ---
EXAM DATE/TIME: 11/22/2016 09:53 [facility] COMPARISON: CHEST SINGLE AP, September 29, 2015, 3:09. INDICATIONS : Chest pain and high blood pressure today. MEDICAL HISTORY : Hypertension. Diabetes. SURGICAL HISTORY : None. ENCOUNTER: Initial ACUITY: 1 day PAIN SCORE: 3/10 LOCATION: Bilateral chest FINDINGS: The heart is mildly enlarged. The pulmonary vascular pattern is normal. The lungs are clear. CONCLUSION: 1. Mild cardiomegaly. 2. No acute focal pulmonary infiltrate or pulmonary vascular congestion. Ger Patel MD on November 22, 2016 at 10:27 Board Certified Radiologist. This report was verified electronically.
--- NOTE | 2016-11-22 11:26 | RADRPT ---
EXAM DATE/TIME: 11/22/2016 10:34 [facility] COMPARISON: CT BRAIN W/O CONTRAST, October 02, 2016, 16:39. INDICATIONS : Headache, dizziness, high blood pressure. RADIATION DOSE: 56.37 CTDIvol (mGy) MEDICAL HISTORY : Cardiovascular disease. Hypertension. SURGICAL HISTORY : None. ENCOUNTER: Initial ACUITY: 1 day PAIN SCALE: 3/10 LOCATION: Cranial TECHNIQUE: Multiple contiguous axial images were obtained of the head. Using automated exposure control and adj ustment of the mA and/or kV according to patient size, radiation dose was kept as low as reasonably a chievable to obtain optimal diagnostic quality images. FINDINGS: Old tiny lacunar infarcts are noted within the bilateral basal ganglia. Moderate periventricular whi te matter small vessel ischemic changes are noted bilaterally. The ventricles, sulci, and cisterns are stable compar ed to the previous examination. There is no acute hemorrhage, mass effect or extraaxial fluid collections. Mi nimal mucosal thickening is noted within the left sphenoid sinus. CONCLUSION: 1. No acute infarct, acute hemorrhage, mass effect or extraaxial fluid collections. 2. Moderate periventricular white matter small vessel ischemic changes bilaterally. 3. Old lacunar infarcts within the bilateral basal ganglia. 4. Mild mucosal thickening within the left sphenoid sinus. Ger Patel MD on November 22, 2016 at 11:08 Board Certified Radiologist. This report was verified electronically.
[2016-11-22] MEDS ORDERED: KETOROLAC TROMETHAMINE 30 MG/ML (IVP) VIAL IV PUSH ONE (12:15)
--- NOTE | 2016-11-23 18:23 | EKG ---
Date Performed: 11/22/2016 Time Performed: 09:47:25 PTAGE: 61 years EKG: Sinus rhythm LEFT VENTRICULAR HYPERTROPHY AND ST-T CHANGE ABNORMAL ECG Compared to prior tracing no significant c hange. PREVIOUS TRACING on 10/02/2016. DOCTOR: Milton Graham Interpretating Date/Time 11/23/2016 18:20:57
== END 2016-11-22 13:14 | disposition home or self-care (01) ==
LOC: NEPE 09:27
DX: I16.0 Hypertensive urgency (principal); R94.31 Abnormal electrocardiogram [ECG] [EKG]
CPT/HCPCS: 70450; 71010; 80053; 82550; 84484; 85025; 85610; 85730; 93005; 96374; 96375; 99284; J1885; J2270; J2405